=== PATIENT | male | born 1995 | race Asian ===

== ENCOUNTER 2021-06-26 10:03 | Emergency (ER) | payer OTHER ==
[~2021-06-26] VITALS: Ht 165.1 cm; Wt 70.5 kg
[2021-06-26] MEDS ORDERED: HYDROCODONE/ACETAMINOPHEN 5-325 MG TABLET PO ONE (11:30)
[2021-06-26] MEDS ORDERED: CEPHALEXIN MONOHYDRATE 500 MG CAPSULE PO ONE (11:30)
[2021-06-26] MEDS ORDERED: SULFAMETHOX/TRIMETH DS 800-160 MG/TABLET PO ONE (11:30)
[2021-06-26 12:45] VITALS: BP 149/84
[2021-06-29] MEDS ORDERED: DOXY-354 PO (11:51)
== END 2021-06-26 12:59 | disposition left against medical advice (07) ==
LOC: EMS 10:04
DX: M65.841 Other synovitis and tenosynovitis, right hand (principal); F17.210 Nicotine dependence, cigarettes, uncomplicated
CPT/HCPCS: 99284; 73130-TC; Z7502; Z7610